=== PATIENT | male | born 1945 | race Caucasian/White ===

== ENCOUNTER → 2018-06-21 | Outpatient (CLI) | payer MEDICARE, BC ==
[~2018-06-21] MED LIST: CARB100CH PO; CEPH500 PO; HYDACE5; HYDACE5 PO; OXYACE5T PO; RXOXYACE PO; TOBR.3OPSO OP
[2018-06-21 14:34] LABS: BASOPHILS ABSOLUTE AUTO 0.02 K/mm3 (0.00-0.23); BASOPHILS PERCENT AUTO 0 % (0-2); EOSINOPHILS ABSOLUTE AUTO 0.08 K/mm3 (0.00-0.68); EOSINOPHILS PERCENT AUTO 1 % (0-6); Hematocrit 42.3 % (37.0-53.0); Hemoglobin 14.5 g/dL (13.5-17.5); IMMATURE GRAN ABSOLUTE AUTO 0.02 K/mm3 (0.00-0.10); IMMATURE GRAN PERCENT AUTO 0 % (0-1); LYMPHOCYTES PERCENT AUTO 24 % (21-46); MONOCYTES PERCENT AUTO 5 % (4-13); Mean Corpuscular HGB 31.2 pg (26.0-34.0); Mean Corpuscular HGB Conc 34.3 g/dL (31.5-36.5); Mean Corpuscular Volume 91 fL (80-100); Mean Platelet Volume 11.7 fL (9.1-12.4); NEUTROPHILS PERCENT AUTO 70 % (41-73); Platelet Count 193 K/mm3 (150-400); RDW Standard Deviation 42.3 fL (35.1-46.3); Red Blood Cell Count 4.65 M/mm3 (4.30-5.90); White Blood Cell Count 10.02 K/mm3 (4.00-11.30)
[2018-06-21 14:37] LABS: Bun/Creatinine Ratio 9.8 (12.0-20.0); Calcium, Blood 8.8 mg/dL (8.5-10.1); Creatinine, Blood 1.23 mg/dL (0.60-1.20); Potassium, Blood 3.9 mmol/L (3.5-5.5)
== END | disposition home or self-care (01) ==
LOC: LAB SHORT 14:23 → LAB EV 14:23
PROVIDERS: Physician Assistant
DX: L03.115 Cellulitis of right lower limb (principal); E03.9 Hypothyroidism, unspecified; R73.03 Prediabetes
CPT/HCPCS: 80048; 83036; 84443; 85025

== ENCOUNTER → 2018-06-26 | Outpatient (CLI) | payer MEDICARE, BC | END | disposition home or self-care (01) | LOC: LAB EV 17:31 → LAB SHORT 17:31 | DX: L02.415 Cutaneous abscess of right lower limb (principal) | CPT/HCPCS: 87070; 87075; 87077; 87186; 87205 ==

== ENCOUNTER 2019-03-02 08:33 | Day surgery (SDC) | payer MEDICARE, BC ==
[~2019-03-02] VITALS: Ht 172.7 cm; Wt 83.1 kg
[~2019-03-02 08:33] MED LIST changes: +ASPI81CH PO; +ATOR20 PO; +Aspirin EC81 MG PO; +Bactrim Ds Tab1 EACH PO; +Flomax0.4 MG PO; +Norco 5-325 Ta1 EACH PO; +PRAV20 PO
== END 2019-03-02 11:18 | disposition home or self-care (01) ==
LOC: ORSCSDS 08:33
PROVIDERS: Internal Medicine Gastroenterology
PROC: 0DJD8ZZ Inspection of Lower Intestinal Tract, Via Natural or Artificial Opening Endoscopic (ICD-10-PCS; principal; 2019-03-02 10:15)
DX: Z12.11 Encounter for screening for malignant neoplasm of colon (principal); K57.30 Diverticulosis of large intestine without perforation or abscess without bleeding; K64.8 Other hemorrhoids; Z79.82 Long term (current) use of aspirin; Z79.899 Other long term (current) drug therapy
CPT/HCPCS: J2704; J7120

== ENCOUNTER → 2019-08-15 | Outpatient (CLI) | payer MEDICARE, BC ==
[2019-08-15 19:15] LABS: PSA, %Free 19.9 %; PSA, Free 0.274 ng/mL
== END ==
LOC: LAB EV 16:43 → LAB SHORT 16:43
PROVIDERS: General Practice
DX: N40.0 Benign prostatic hyperplasia without lower urinary tract symptoms (principal)
CPT/HCPCS: 84153; 84154; 87086

== ENCOUNTER 2022-11-26 08:19 | Day surgery (SDC) | payer MEDICARE, BC ==
[~2022-11-26] VITALS: Ht 172.7 cm; Wt 77.9 kg
[2022-11-26 10:49] VITALS: BP 128/82
--- NOTE | 2022-11-26 11:03 | NUR ---
11/26/22 1108 Swati Jo PT REQUESTED A FORM STATING IT WAS SAFE FOR HIM TO RETURN TO WORK. ENCOURAGED THE PATIENT TO TALK TO DR. HOOPER AT HIS FOLLOW UP APPOINTMENT TOMORROW ABOUT WHETHER THAT WOULD BE APPROPRIATE. PT WILL TALK TO
== END 2022-11-26 11:03 | disposition home or self-care (01) ==
LOC: ORSCSDS 08:19
PROVIDERS: Student in an Organized Health Care Education/Training Program
PROC: 08RJ3JZ Replacement of Right Lens with Synthetic Substitute, Percutaneous Approach (ICD-10-PCS; principal; 2022-11-26 10:00)
DX: H25.13 Age-related nuclear cataract, bilateral (principal); I25.10 Atherosclerotic heart disease of native coronary artery without angina pectoris; Z79.899 Other long term (current) drug therapy; Z79.82 Long term (current) use of aspirin
CPT/HCPCS: J2250; J3010; J7040; V2632

== ENCOUNTER 2023-02-20 10:09 | Emergency (ER) | payer MEDICARE, BC ==
[~2023-02-20] VITALS: Ht 172.7 cm; Wt 76.2 kg
[2023-02-20 10:42] LABS: Source, Urine Clean Catch
[2023-02-20 10:54] LABS: Appearance, Urine Clear (Clear); Bilirubin, Urine Neg (Neg); Blood, Urine Neg (Neg); Color, Urine Yellow (P-Yellow); Glucose Qualitative, Urine Neg (Neg); Ketones, Urine Neg (Neg); Leukocyte Esterase, Urine 1+ (Neg); Nitrite, Urine Neg (Neg); Protein, Urine Neg (Neg); Urobilinogen, Urine NORM (Normal)
[2023-02-20 10:56] LABS: BASOPHILS ABSOLUTE AUTO 0.03 K/mm3 (0.00-0.23); BASOPHILS PERCENT AUTO 0 % (0-2); EOSINOPHILS ABSOLUTE AUTO 0.24 K/mm3 (0.00-0.68); EOSINOPHILS PERCENT AUTO 3 % (0-6); Hematocrit 43.3 % (37.0-53.0); Hemoglobin 14.5 g/dL (13.5-17.5); IMMATURE GRAN ABSOLUTE AUTO 0.04 K/mm3 (0.00-0.10); IMMATURE GRAN PERCENT AUTO 0 % (0-1); LYMPHOCYTES ABSOLUTE AUTO 2.11 K/mm3 (0.84-5.20); LYMPHOCYTES PERCENT AUTO 23 % (21-46); MONOCYTES ABSOLUTE AUTO 0.77 K/mm3 (0.16-1.47); MONOCYTES PERCENT AUTO 9 % (4-13); Mean Corpuscular HGB 30.4 pg (26.0-34.0); Mean Corpuscular HGB Conc 33.5 g/dL (31.5-36.5); Mean Corpuscular Volume 91 fL (80-100); Mean Platelet Volume 10.3 fL (9.1-12.4); NEUTROPHILS ABSOLUTE AUTO 5.89 K/mm3 (1.96-9.15); NEUTROPHILS PERCENT AUTO 65 % (41-73); Platelet Count 196 K/mm3 (150-400); RDW Coefficient Variation 12.9 % (11.7-14.2); RDW Standard Deviation 42.5 fL (35.1-46.3); Red Blood Cell Count 4.77 M/mm3 (4.30-5.90); White Blood Cell Count 9.08 K/mm3 (4.00-11.30)
[2023-02-20 11:09] LABS: Albumin, Blood 3.6 g/dL (3.4-5.0); Bilirubin, Total 0.6 mg/dL (0.1-1.0); Bun/Creatinine Ratio 12.3 (12.0-20.0); Calcium, Blood 8.7 mg/dL (8.5-10.1); Creatinine, Blood 1.71 mg/dL (0.60-1.20); Globulin, Blood 3.6 g/dL (2.2-4.0); Potassium, Blood 4.3 mmol/L (3.5-5.5); Total Protein, Blood 7.2 g/dL (6.4-8.2)
[2023-02-20 11:39] LABS: Bacteria Few /hpf; Red Blood Cells, Urine 0-2 /hpf (0-2); Squamous Epithelial Cells Few /hpf (Few)
[2023-02-20 12:45] VITALS: BP 129/80
[2023-02-20] MEDS ORDERED: Percocet 5-3251 EACH PO (12:46)
== END 2023-02-20 13:03 | disposition home or self-care (01) ==
LOC: ER 10:09
PROVIDERS: Physician Assistant
DX: N13.2 Hydronephrosis with renal and ureteral calculous obstruction (principal); Z79.82 Long term (current) use of aspirin; Z79.899 Other long term (current) drug therapy
CPT/HCPCS: 74177; 80053; 81001; 83690; 85025; 87086; 99284-25; Q9967

== ENCOUNTER 2023-05-11 17:44 | Emergency (ER) | payer MEDICARE, BC ==
[~2023-05-11] VITALS: Ht 170.2 cm; Wt 72.6 kg
[~2023-05-11 17:44] MED LIST changes: +Percocet 5-3251 EACH PO
[2023-05-11 18:28] VITALS: BP 152/84
== END 2023-05-11 20:10 | disposition home or self-care (01) ==
LOC: ER 17:44
DX: M25.561 Pain in right knee (principal); X50.0XXA Overexertion from strenuous movement or load, initial encounter; Z79.899 Other long term (current) drug therapy; Z79.82 Long term (current) use of aspirin
CPT/HCPCS: 73562-RT; 99283-25

== ENCOUNTER → 2024-03-11 | Outpatient (CLI) | payer MEDICARE, BC | LOC: LAB SHORT 10:54 → LAB 10:54 | DX: Z01.818 Encounter for other preprocedural examination (principal); M17.11 Unilateral primary osteoarthritis, right knee; N40.1 Benign prostatic hyperplasia with lower urinary tract symptoms | CPT/HCPCS: 87086 ==

== ENCOUNTER 2025-01-17 10:43 | Day surgery (SDC) | payer MEDICARE, BC ==
[~2025-01-17] VITALS: Ht 172.7 cm; Wt 76.7 kg
[~2025-01-17 10:43] MED LIST changes: +OXAYDO5 M2 PO
[2025-01-17] MEDS ORDERED: CeFAZolin Sodium 2,000 MG VIAL ONE (10:56)
[2025-01-17] MEDS ORDERED: THERA-D2000 UNIT PO (11:13)
[2025-01-17] MEDS ORDERED: GROWTH HORMONE (11:14)
[2025-01-17] MEDS ORDERED: [UNRECOGNIZED DRUG - OTHER] (11:14)
[2025-01-17] MEDS ORDERED: GLUC500 PO (11:15)
[2025-01-17] MEDS ORDERED: VITAMIN (11:16)
[2025-01-17] MEDS ORDERED: Vitamin B Comple1 EA PO (11:16)
[2025-01-17] MEDS ORDERED: Lidocaine 2% Jelly Uro-Jet ONE (12:18)
[2025-01-17] MEDS ORDERED: FentaNYL Citrate 50 MCG/ML 2 ML Injection ONE (12:26)
[2025-01-17] MEDS ORDERED: Ketorolac Tromethamine 30mg Vial ONE (12:27)
[2025-01-17] MEDS ORDERED: Ondansetron HCl 2 MG / ML 2ML Vial ONE (12:27)
[2025-01-17] MEDS ORDERED: Dexamethasone Sod Phos 10 MG/ML 1ML VIAL ONE (12:27)
--- NOTE | 2025-01-17 14:49 | NUR ---
01/17/25 0811 Marcela Wilburn REPORT RECEIVED FROM EVERARDO MESSINA AT 1410.
[2025-01-17 14:53] VITALS: BP 121/70
== END 2025-01-17 15:22 | disposition home or self-care (01) ==
LOC: ORSCSDS 10:43
PROVIDERS: Urology
PROC: 0TC68ZZ Extirpation of Matter from Right Ureter, Via Natural or Artificial Opening Endoscopic (ICD-10-PCS; principal; 2025-01-17 12:30)
PROC: 0T768DZ Dilation of Right Ureter with Intraluminal Device, Via Natural or Artificial Opening Endoscopic (ICD-10-PCS; principal; 2025-01-17 12:30)
DX: N13.2 Hydronephrosis with renal and ureteral calculous obstruction (principal); N23 Unspecified renal colic; N40.0 Benign prostatic hyperplasia without lower urinary tract symptoms; I25.10 Atherosclerotic heart disease of native coronary artery without angina pectoris; Z79.899 Other long term (current) drug therapy; Z79.82 Long term (current) use of aspirin
CPT/HCPCS: C1769; C2617; J0690; J1100; J1885; J2405; J2704; J3010; J7120